=== PATIENT | female | born 2000 | race Caucasian/White ===

== ENCOUNTER 2021-02-18 08:15 | Outpatient (RCR) | payer OTHER, SELFPAY ==
--- NOTE | 2020-11-20 08:32 | PTOPEVAL ---
PHYSICAL THERAPY EVALUATION AND PLAN OF CARE Thank you for referring Nabeel Macias to [facility] [place].? The patient is scheduled to be seen for therapy?1-2x/week for 3-6 weeks. Please review, sign, date and return this plan of care YANCY. I agree with and certify that the following plan of care is medically necessary. Referring Physician Date Attending Provider: Yennifer Escamilla, Evaluation Diagnosis right periacetabular osteotomy Onset Subjective Information Nabeel is here 1.5 months Query Text:As Reported By Patient/ after right hip osteotomy. She Family initially had arthroscopic surgery in March 2020 but continued to have pain even while walking. She was non- weightbearing from 10/02/2020 to 11/16/2020. States that she feels fine to walk Self Report Pain Assessment Right Hip(s) Reported Pain Level 3 Pain Description Aching Pain Frequency Acute,Continuous Other Pain Description some in the groin and some in the back of the hip Lowest Pain Intensity 0 Greatest Pain Intensity 6 Pain Aggravating Factors Exercise/Activity,Stair Climbing,Walking,Weight Bearing/Standing Pain Behaviors None Interventions Used Interventions Used By Clinicians Exercise Pain Relief Interventions Used By Sitting Patient Lower Extremity Range of Motion Hip Range of Motion Right Hip Flexion Range of Motion - Passive 130 Hip Medial Rotation - Active 45 Hip Lateral Rotation - Active 45 Lower Extremity Muscle Strength Testing Hip Strength Right Hip Flexion Strength 3+ Fair + Hip Extension Strength 3+ Fair + Hip Abduction Strength 3+ Fair + Knee Strength Right Knee Flexion Strength 4- Good - Knee Extension Strength 4- Good - Muscle Length Testing Muscle Length Testing Left Hamstring Length -45 Query Text:(90 - 90 Position) Right Hamstring Length -45 Query Text:(90 - 90 Position) Palpation Assessment Palpation Palpation mild increased tension through right glutes Gait Assessment Gait Pattern Assessment Gait Pattern Antalgic Gait Gait Pattern Observed Decreased Weight Shift - Right Other Gait Observations decreased right hip extension causing excessive right pelvic rotation Stair Climbing Assessment Stair Climbing Assessment Stair Climbing Assistive Devices
--- NOTE | 2020-12-13 09:45 | PTOPEVAL ---
PHYSICAL THERAPY PROGRESS REPORT Thank you for referring Nabeel Macias to [facility].? The patient is scheduled to be seen for therapy? 2x/week for 4 weeks. Please review, sign, date and return this plan of care YANCY. I agree with and certify that the following plan of care is medically necessary. Referring Physician Date Attending Provider: Yennifer Escamilla, Progress Diagnosis right periacetabular osteotomy Onset Subjective Information Nabeel is here 2.5 months Query Text:As Reported By Patient/ after right hip osteotomy. She Family initially had arthroscopic surgery in March 2020 but continued to have pain even while walking. Nabeel continues to have some pain while walking and with prolonged sitting. Self Report Pain Assessment Right Hip(s) Reported Pain Level 2 Pain Description Aching Pain Frequency Acute,Continuous Pain Aggravating Factors Exercise/Activity,Stair Climbing,Walking,Weight Bearing/Standing Pain Behaviors Guarding Interventions Used Interventions Used By Clinicians Exercise Pain Relief Interventions Used By Sitting Patient Lower Extremity Range of Motion Hip Range of Motion Right Hip Flexion Range of Motion - Active 130 Hip Medial Rotation - Active 45 Hip Lateral Rotation - Active 55 Lower Extremity Muscle Strength Testing Hip Strength Right Hip Flexion Strength 4 Good Hip Extension Strength 4- Good - Hip Abduction Strength 3+ Fair + Knee Strength Right Knee Flexion Strength 4 Good Knee Extension Strength 4 Good Muscle Length Testing Muscle Length Testing Left Hamstring Length -45 Query Text:(90 - 90 Position) Right Hamstring Length -45 Query Text:(90 - 90 Position) Palpation Assessment Palpation Palpation mild increased tension through right glutes and right QL; tightness noted distal quad Gait Assessment Gait Pattern Assessment Gait Pattern Antalgic Gait Gait Pattern Observed Decreased Weight Shift - Right Other Gait Observations decreased right hip extension causing excessive right pelvic rotation General Exercise General Exercises Side Right Exercise Location LE Exercise Type Active,Stretching Exercise Description -sidelying hip abduction SLR
--- NOTE | 2021-01-10 08:21 | PTOPEVAL ---
PHYSICAL THERAPY PROGRESS REPORT AND PLAN OF CARE UPDATE Thank you for referring Nabeel Macias to [facility].? The patient is scheduled to be seen for therapy? 2x/week for 4 weeks. Please review, sign, date and return this plan of care YANCY. I agree with and certify that the following plan of care is medically necessary. Referring Physician Date Attending Provider: Yennifer Escamilla, Progress Diagnosis right periacetabular osteotomy Onset Subjective Information symptoms continue to be Query Text:As Reported By Patient/ moderate when walking and Family stair climbing; sitting causes some stiffness. She has a complaint of a pain in the anterior hip and describes it as a tight muscle Self Report Pain Assessment Right Hip(s) Reported Pain Level 2 Pain Description Aching Pain Frequency Acute,Continuous Pain Aggravating Factors Exercise/Activity,Stair Climbing,Walking,Weight Bearing/Standing Pain Behaviors Guarding Pain Score Pain Score 2: Self Report Additional Pain Score Comments continues to have pain in the groin, front, and side of hip Interventions Used Interventions Used By Clinicians Exercise,Manual Therapy Techniques Pain Relief Interventions Used By Sitting Patient Lower Extremity Range of Motion Hip Range of Motion Right Hip Flexion Range of Motion - Active 130 Hip Medial Rotation - Active 45 Hip Lateral Rotation - Active 55 Lower Extremity Muscle Strength Testing Hip Strength Right Hip Flexion Strength 4+ Good + Hip Extension Strength 4- Good - Hip Abduction Strength 4- Good - Knee Strength Right Knee Flexion Strength 4+ Good + Knee Extension Strength 4 Good Palpation Assessment Palpation Palpation mild increased tension through right glutes and right QL; tightness noted distal quad Gait Assessment Gait Pattern Assessment Gait Pattern Antalgic Gait Gait Pattern Observed Decreased Weight Shift - Right Other Gait Observations excessive right knee extension and early foot drop in stance phase General Exercise General Exercises Side Right Exercise Location LE Exercise Type Active,Stretching Exercise Description -10minutes on gait and gait Query Text:Record Sets, Reps, training including heel
--- NOTE | 2021-02-07 09:05 | PTOPEVAL ---
PHYSICAL THERAPY PROGRESS REPORT Thank you for referring Nabeel Macias to [facility].? The patient is scheduled to be seen for therapy? 2x/week for 4 weeks. Please review, sign, date and return this plan of care YANCY. I agree with and certify that the following plan of care is medically necessary. Referring Physician Date Attending Provider: Yennifer Escamilla, Progress Evaluation Information Problem Diagnosis right periacetabular osteotomy Onset Subjective Information No significant changes. Query Text:As Reported By Patient/ continues to have anterior hip Family pain and pain at hamstring insertion. Self Report Pain Assessment Right Hip(s) Reported Pain Level 2 Pain Description Aching,Pinching Pain Frequency Acute,Continuous Pain Aggravating Factors Exercise/Activity,Stair Climbing,Walking,Weight Bearing/Standing Pain Behaviors Guarding Pain Score Pain Score 2: Self Report Additional Pain Score Comments . Interventions Used Interventions Used By Clinicians Exercise,Manual Therapy Techniques Pain Relief Interventions Used By Sitting Patient Lower Extremity Muscle Strength Testing Hip Strength Right Hip Flexion Strength 4 Good Hip Extension Strength 4- Good - Hip Abduction Strength 3+ Fair + Hip Strength Comments when performing step ups, right hip drops out with poor glute med activation Knee Strength Right Knee Flexion Strength 4+ Good + Knee Extension Strength 4 Good Muscle Length Testing Muscle Length Testing Left Hamstring Length -45 Query Text:(90 - 90 Position) Right Hamstring Length -45 Query Text:(90 - 90 Position) Palpation Assessment Palpation Palpation short right adductors; trigger point noted General Exercise Side Right,Bilateral Exercise Location LE Exercise Type Active,Stretching Exercise Description -forward step up 4 step with Query Text:Record Sets, Reps, emphasis on engaging glute med Resistance, and Position to control alignment of hip and femur during action to fatigue -squats with green band around knees, mid range, to fatigue -s/l SLR hip abduction - cues to reduce hip hike x15x3 1.5# Rehab Teaching Rehab Teaching
--- NOTE | 2021-02-18 16:45 | PCPTNOTE ---
This treatment is being continued on visit number [id number]. Please see documentation on both accounts to view progress. Completed interventions, outcomes, and problems have been marked as Inactive to facilitate the copying of the Care plan routine for recurring accounts.
== END 2021-02-18 15:47 | disposition home or self-care (01) ==
LOC: ANHPT 08:15
PROVIDERS: PCP Pediatrics; Visit Provider Orthopaedic Surgery
DX: Z47.89 Encounter for other orthopedic aftercare (principal); M21.851 Other specified acquired deformities of right thigh
CPT/HCPCS: 97110; 97116; 97140; 97161

== ENCOUNTER 2021-05-20 14:00 | Outpatient (RCR) | payer OTHER, SELFPAY ==
--- NOTE | 2021-02-18 16:45 | PCPTNOTE ---
The treatment documented on this account is a continuation of the treatment documented on visit number [id number]. Please see documentation on both accounts to view progress. The Plan of Care has been transitioned and updated within the new V#. I have addressed and agree with the discipline specific Problems, Interventions, and Goals for the current certification period. Completed interventions, outcomes, and problems have been marked as Inactive to facilitate the copying of the Care plan routine for recurring accounts.
--- NOTE | 2021-03-14 09:29 | PTOPEVAL ---
PHYSICAL THERAPY PROGRESS REPORT Thank you for referring Nabeel Macias to [facility].? The patient is scheduled to be seen for therapy? 1x/week for 8 weeks with expectation that she progress her strengthening routine at the gym including cardio (elliptical, arc staff trainer) and weight training. Please review, sign, date and return this plan of care YANCY. I agree with and certify that the following plan of care is medically necessary. Referring Physician Date Attending Provider: Yennifer Escamilla, Diagnosis right periacetabular osteotomy Onset Subjective Information States that she feels like the Query Text:As Reported By Patient/ initial surgery/healing pain Family is gone but today she states that she feels bone pain. She did go on vacation last week and was walking around and doing things and maybe this pain is related to that. In my opinion, she is active when she is not on vacation so doing things on vacation should not necessarily increase pain anymore than when not on vacation. Self Report Pain Assessment Right Hip(s) Reported Pain Level 4 Pain Description Aching,Tightness Pain Score Pain Score 4: Self Report Interventions Used Interventions Used By Clinicians Exercise Lower Extremity Muscle Strength Testing Hip Strength Right Hip Flexion Strength 4- Good - Hip Extension Strength 4- Good - Hip Abduction Strength 3+ Fair + Knee Strength Right Knee Flexion Strength 4 Good Knee Extension Strength 4- Good - Muscle Length Testing Muscle Length Testing Left Hamstring Length -35 Query Text:(90 - 90 Position) Right Hamstring Length -35 Query Text:(90 - 90 Position) Gait Assessment Gait Pattern Assessment Gait Pattern Trendelenburg Gait Gait Pattern Observed Decreased Weight Shift - Right Other Gait Observations improving gait pattern; does continue to have a mild right hip drop in stance phase General Exercise General Exercises Side Right,Bilateral Exercise Location LE Exercise Type Active Exercise Description Discussed at length that Query Text:Record Sets, Reps, importance and necessity of Resistance, and Position performing exercises for strengthening most days of the week upd
--- NOTE | 2021-05-15 10:30 | PCPTNOTE ---
Patient called & cancelled scheduled appointment this date due to bad weather.
--- NOTE | 2021-05-20 14:38 | PTOPEVAL ---
PHYSICAL THERAPY DISCHARGE NOTE Thank you for referring Nabeel Macias to [facility]. Please review, sign, date and return this plan of care YANCY. I agree with and certify that the following plan of care is medically necessary. Referring Physician Date Attending Provider: Yennifer Escamilla, MD Discharge Diagnosis right periacetabular osteotomy Onset Subjective Information States overall doing fine. Query Text:As Reported By Patient/ There has been some pain over Family the last couple of weeks but she is exercising at the gym and that is going well. States that sometimes there is a sharper pain not necessarily attributed to anything specific. Self Report Self Report Pain Level 0 Pain Score Pain Score 0: Self Report Lower Extremity Muscle Strength Testing Hip Strength Right Hip Flexion Strength 4+ Good + Hip Extension Strength 5 Normal Hip Abduction Strength 4 Good Hip Strength Comments LEG PRESS: unilateral 70# x15 right LE heel raises: 12; left LE heel raises: 02 jump forward, single leg hop - normal Knee Strength Right Knee Flexion Strength 5 Normal Knee Extension Strength 4+ Good + PT Clinical Summary Nabeel participated in physical therapy assessment today. She is demonstrating normal to nearly normal right LE strength. She is consistently going to the gym. We discussed at length how to strengthen and progress her strengthening routine. We discussed plyometrics and jogging and determine priorities in order to maintain physical and mental health. We will d/c at this time. PT Services Indicated No Rehabilitation Potential Excellent Potential Barriers to Goal Achievements None Support Requirements For Optimal None [place] Patient/Caregiver Informed of Benefits/ Yes Risks of Rehabilitation Patient/Caregiver Participated in Plan Yes of Care Patient/Caregiver Agreed with Problem Yes
== END 2021-05-21 09:17 | disposition home or self-care (01) ==
LOC: ANHPT 14:00
PROVIDERS: PCP Pediatrics; Visit Provider Orthopaedic Surgery
DX: Z47.89 Encounter for other orthopedic aftercare (principal); M21.851 Other specified acquired deformities of right thigh
CPT/HCPCS: 97110; 97140